=== PATIENT | male | born 1990 | race Caucasian/White ===

== ENCOUNTER 2020-05-29 19:55 | Emergency (ER) | payer SELFPAY ==
[2020-05-29] MEDS ORDERED: CHERRY SYRUP 10 ML UDC PO ONE (20:12)
[2020-05-29] MEDS ORDERED: DEXAMETHASONE 10 MG/ML VIAL PO STA (20:12)
--- NOTE | 2020-05-29 20:37 | ED Physician Documentation ---
History of Present Illness - Stated complaint Stated Complaint: DIFFICULTY SWALLOWING, NECK PAIN - Chief complaint Chief Complaint: Heent - History obtained from History obtained from: Patient - History of Present Illness Timing: How many weeks ago (1) Pain level max: 6 Pain level now: 4 - Additonal information Additional information: 29-year-old male with a sore throat for the past week. Worse with swallowing, better with rest. States he feels like the lymph nodes are swollen on the left side of his neck as well. No fevers. No chills. No vomiting. Review of Systems Constitutional: denies: Fever, Chills GI: denies: Abdominal Pain, Vomiting, Diarrhea Skin: denies: Rash Musculoskeletal: denies: Neck pain, Back pain Neurologic: denies: Headache PD PAST MEDICAL HISTORY - Past Medical History Past Medical History: No - Allergies Allergies/Adverse Reactions: Allergies Allergy/AdvReac Type Severity Reaction Status Date / Time No Known Drug Allergies Allergy Verified 05/29/20 19:58 - Social History Does the pt smoke?: No Smoking Status: Never smoker PD ED PE NORMAL - Vitals Vital signs reviewed: Yes - General General: Alert and oriented X 3, No acute distress - HEENT HEENT: Ears normal, Moist mucous membranes, Other (Posterior pharyngeal erythema without tonsillar exudates. normal phonation, no trismus) - Neck Neck: Supple, no meningeal sign, Other (shotty anterior LAD) - Cardiac Cardiac: RRR, Strong equal pulses - Respiratory Respiratory: No respiratory distress, Clear bilaterally - Derm Derm: Warm and dry - Neuro Neuro: Alert and oriented X 3 Results - Vitals Vitals: Vital Signs - 24 hr 05/29/20 05/29/20 19:58 21:07 Temperature 36.5 C Heart Rate 88 82 Respiratory 14 16 Rate Blood Pressure 139/81 H 131/74 H O2 Saturation 97 98 Oxygen O2 Source Room air - Labs Labs: Laboratory Tests 05/29/20 20:25 Group A Strep Rapid Negative PD MEDICAL DECISION MAKING - ED course Complexity details: reviewed results, considered differential, d/w patient ED course: 29-year-old male with what appears to be a viral pharyngitis. Shotty anterior lymphadenopathy on the left side of the neck. Tolerating p.o. without difficulty. Given dexamethasone here. We will continue supportive care and have him follow-up with his doctor. Negative rapid strep. No evidence of peritonsillar or retropharyngeal abscess. Patient counseled regarding signs and symptoms for which I believe and urgent re-evaluation would be necessary. Patient with good understanding of and agreement to plan and is comfortable g oing home at this time This document was made in part using voice recognition software. While efforts are made to proofread this document, sound alike and grammatical errors may occur. Departure - Departure Disposition: Home, Self Care Clinical Impression: Pharyngitis Qualifiers: Pharyngitis/tonsillitis etiology: unspecified etiology Qualified Code(s): J02.9 - Acute pharyngitis, unspecified Condition: Good Instructions: ED Pharyngitis Viral Follow-Up: your,doctor in 1 week if not better. [Other] Comments: Drink plenty of fluids and rest. Return if you worsen. If your throat culture is positive, we will call you. Discharge Date/Time: 05/29/20 21:05
[2020-05-29 20:39] LABS: RAPID STREP SCREEN Negative (Negative)
[2020-05-29 21:07] VITALS: BP 131/74
== END 2020-05-29 21:05 | disposition home or self-care (01) ==
LOC: ED 19:55
DX: J02.9 Acute pharyngitis, unspecified (principal)
CPT/HCPCS: 87070; 87077; 87430; 99283; 99284; A9270

== ENCOUNTER 2020-07-30 11:15 | Emergency (ER) | payer MEDICAID ==
[2020-07-30 11:33] VITALS: BP 129/84
[2020-07-30] MEDS ORDERED: LIDOCAINE 1% 2 ML VIAL MC ONE (13:13)
[2020-07-30] MEDS ORDERED: cefTRIAXone 1 GM VIAL IM STA (13:13)
--- NOTE | 2020-07-30 13:16 | ED Physician Documentation ---
PD HPI WOUND RECHECK - Stated complaint Stated Complaint: CHEEK PX - Chief complaint Chief Complaint: Wound - Histroy obtained from History obtained from: Patient - History of Present Illness Location: Face Timing - onset: How many days ago (several) Pain level max: 5 Pain level now: 3 Associated symptoms: Redness, Swelling, Drainage. No: Fever Recently seen: Clinic (walk in clinic in [place] yesterday, has taken 1 dose of doxycycline. Came in for evaluation today.) Review of Systems Constitutional: denies: Fever, Chills Ears: denies: Loss of hearing, Ear pain Skin: denies: Rash Musculoskeletal: denies: Neck pain, Back pain Neurologic: denies: Headache PD PAST MEDICAL HISTORY - Past Medical History Past Medical History: Yes Cardiovascular: None Respiratory: None Neuro: None Endocrine/Autoimmune: None GI: None : None HEENT: None Psych: None Musculoskeletal: None Derm: None - Past Surgical History Past Surgical History: No - Present Medications Home Medications: Ambulatory Orders Medication Instructions Recorded Confirmed Bactroban 1 applic 07/30/20 Cephalexin [Keflex] 500 mg PO Q6H #28 capsule 07/30/20 Doxycycline Hyclate 150 mg PO 07/30/20 - Allergies Allergies/Adverse Reactions: Allergies Allergy/AdvReac Type Severity Reaction Status Date / Time No Known Drug Allergies Allergy Verified 07/30/20 11:34 - Social History Does the pt smoke?: No Smoking Status: Never smoker Does the pt drink ETOH?: No Does the pt have substance abuse?: No - Immunizations Immunizations are current?: Yes - POLST Patient has POLST: No PD ED PE NORMAL - Vitals Vital signs reviewed: Yes - General General: Alert and oriented X 3, No acute distress - HEENT HEENT: Moist mucous membranes, Other (L cheek - redness, swelling, no drainage. 3 x 3 cm. No fluctuance.) - Neck Neck: Supple, no meningeal sign - Derm Derm: Warm and dry - Neuro Neuro: Alert and oriented X 3 Results - Vitals Vitals: Vital Signs - 24 hr 07/30/20 11:26 Temperature 36.3 C L Heart Rate 80 Respiratory 16 Rate Blood Pressure 129/84 H O2 Saturation 96 Oxygen O2 Source Room air PD MEDICAL DECISION MAKING - ED course Complexity details: considered differential, d/w patient ED course: Patient with cellulitis to the left cheek. He states that it drained spontaneously 2 days ago at home, thick white discharge. He was seen at the walk-in clinic yesterday and prescribed doxycycline. Given a shot of Rocephin here and will add Keflex. Bedside ultrasound was performed, there is no significant abscess inside the indurated area. No incision will be made at this time. Patient is well-appearing, nontoxic. Afebrile. Normal phonation. No trismus. Patient counseled regarding signs and symptoms for which I believe and urgent re-evaluation would be necessary. Patient with good understanding of and agreement to plan and is comfortable going home at this time This document was made in part using voice recognition software. While efforts are made to proofread this document, sound alike and grammatical errors may occur. Departure - Departure Disposition: 01 Home, Self Care Clinical Impression: Cellulitis and abscess of face Condition: Good Instructions: ED Abscess IandD Follow-Up: your,doctor in 1 week for recheck [Other] Prescriptions: Cephalexin [Keflex] 500 mg PO Q6H #28 capsule Comments: Continue your doxycycline. Return if you worsen. Follow-up with your doctor for further care. Return if you worsen. This should improve over the next 24 to 48 hours. Warm compresses will help as well
== END 2020-07-30 13:35 | disposition home or self-care (01) ==
LOC: ED 11:15
DX: L03.211 Cellulitis of face (principal); L02.01 Cutaneous abscess of face
CPT/HCPCS: 96372; 99283; 99284

== ENCOUNTER 2022-04-28 08:00 | Outpatient (CLI) | payer MEDICAID, OTHER ==
--- NOTE | 2022-04-28 13:53 | XRAY Report ---
PROCEDURE: Toe(s) LT INDICATIONS: 3RD TOE LEFT PAIN TECHNIQUE: 3 views of the third toe(s) acquired. COMPARISON: None FINDINGS: Bones: No fractures or dislocations. No suspicious bony lesions. Soft tissues: No suspicious soft tissue densities. IMPRESSION: No visualized acute fracture or dislocation. However, occult injury cannot be excluded. Recommend juliann rt interval imaging follow-up in 7-10 days as clinically indicated for additional evaluation. Reviewed by: Vivi López MD on 04/28/2022 1:52 PM PDT Approved by: Vivi López MD on 04/28/2022 1:52 PM PDT Station ID: [id number]
== END 2022-04-28 08:01 | disposition home or self-care (01) ==
LOC: DI.S 08:00
PROVIDERS: ATTEND Physician Assistant
DX: M79.675 Pain in left toe(s) (principal)
CPT/HCPCS: 73660

== ENCOUNTER 2022-05-09 18:18 | Outpatient (CLI) | payer OTHER ==
--- NOTE | 2022-05-09 16:58 | XRAY Report ---
PROCEDURE: Chest 2 View X-Ray INDICATIONS: AXILLARY LYMPHADENOPATHY TECHNIQUE: 2 view(s) of the chest. COMPARISON: None. FINDINGS: Surgical changes and devices: None. Lungs and pleura: No pleural effusions or pneumothorax. Lungs are clear. Mediastinum: Mediastinal contours are normal. Heart size is normal. Bones and chest wall: No suspicious bony abnormalities. Soft tissues appear unremarkable. IMPRESSION: No acute cardiopulmonary findings. Reviewed by: Haley Little MD on 05/09/2022 4:57 PM PDT Approved by: Haley Little MD on 05/09/2022 4:57 PM PDT Station ID: [id number]
== END 2022-05-09 18:19 | disposition home or self-care (01) ==
LOC: DI.S 18:18
PROVIDERS: ATTEND Physician Assistant
DX: R59.0 Localized enlarged lymph nodes (principal); R07.81 Pleurodynia
CPT/HCPCS: 36415; 80053; 85025